=== PATIENT | male | born 1965 | race Two or more races ===

== ENCOUNTER 2018-08-15 18:30 | Emergency (ER) | payer OTHER ==
[~2018-08-15] VITALS: Ht 177.8 cm; Wt 77.1 kg
== END 2018-08-15 23:20 | disposition home or self-care (01) ==
LOC: ER 18:30
DX: N20.0 Calculus of kidney (principal)

== ENCOUNTER 2022-09-18 12:25 | Emergency (ER) | payer OTHER ==
[~2022-09-18] VITALS: Ht 180.3 cm; Wt 72.6 kg
[2022-09-18] MEDS ORDERED: ASA81 MG PO (12:33)
[2022-09-18] MEDS ORDERED: LOSARTAN POTASS25 MG PO (15:22)
== END 2022-09-18 15:29 | disposition home or self-care (01) ==
LOC: ER 12:25
DX: R07.89 Other chest pain (principal); I10 Essential (primary) hypertension

== ENCOUNTER → 2022-12-19 | Emergency (ER) | payer OTHER ==
[~2022-12-19] VITALS: Ht 180.3 cm; Wt 74.8 kg
[~2022-12-19] MED LIST: ASA81 MG PO; LOSARTAN POTASS25 MG PO
== END | disposition left against medical advice (07) ==
LOC: ER
DX: M54.9 Dorsalgia, unspecified (principal)